=== PATIENT | male | born 1980 | race Caucasian/White ===

== ENCOUNTER 2018-09-24 12:59 | Day surgery (SDC) | payer MEDICAID ==
[~2018-09-24 12:59] MED LIST: ALPRAZolam TAB* 0.25 MG PO ONE; Famotidine IV* 10 MG/ML 2 ML (20 mg) IV ONE; Lactated Ringers 1000 ML Bag* 1,000 ML IV SCH
[2018-09-24] MEDS ORDERED: fentaNYL* 50 MCG/ML 2 ML VIAL (100 MCG VIAL) ONE ×2 (13:10)
[2018-09-24] MEDS ORDERED: Midazolam* 1 MG/ML 5 ML VIAL (5 MG) ONE ×2 (13:10)
[2018-09-24] MEDS: Buffered Lidocaine 1% SYRIN* 1 ML/SYRINGE INTRADERM ONE ×2 (13:26→14:49)
[2018-09-24] MEDS ORDERED: Clindamycin 900 MG/D5W BAG(*) 900 MG/50 ML BAG IVPB ONE ×2 (13:32)
[2018-09-24] MEDS ORDERED: Famotidine IV* 10 MG/ML 2 ML (20 mg) ONE ×2 (13:32)
[2018-09-24] MEDS ORDERED: Lidocaine 2.5%/Prilocain 2.5%* 5 GM TUBE ONE ×2 (13:34)
[2018-09-24] MEDS ORDERED: Bupivacaine 0.25% SDV PF* 10 ML VIAL INJ ONE ×2 (14:28)
[2018-09-24] MEDS ORDERED: Ketorolac INJ* 30 MG/ML 1 ML VIAL ONE ×2 (15:23)
[2018-09-24] MEDS ORDERED: Lidocaine 2% PF * 5 ML VIAL ONE ×2 (15:23)
[2018-09-24] MEDS ORDERED: Dexamethasone IV* 4 MG/ML 1 ML (4 MG) ONE ×2 (15:23)
[2018-09-24] MEDS ORDERED: Propofol* 10 MG/ML 20 ML BTL ONE ×4 (15:23→16:31)
[2018-09-24] MEDS ORDERED: Ondansetron INJ* 2 MG/ML VIAL ONE ×2 (15:23)
[2018-09-24] MEDS ORDERED: Acetaminophen TAB* 325 MG PO PRN (15:30)
[2018-09-24] MEDS ORDERED: oxyCODONE TAB* 5 MG TAB PO PRN (15:30)
[2018-09-24] MEDS ORDERED: DiMENhydriNATE IV* 50 MG/ML VIAL IV PUSH PRN (15:30)
[2018-09-24] MEDS ORDERED: HYDROmorphone INJ1* 1 MG/ML SYRINGE IV PRN (15:30)
[2018-09-24] MEDS ORDERED: Naloxone* 0.4 MG/ML 1 ML VIAL IV PRN (15:30)
[2018-09-24 17:00] VITALS: BP 142/97
--- NOTE | 2018-09-24 22:25 | OP ---
DATE OF OPERATION: 09/24/18 - [facility] DATE OF : 80 SURGEON: Gilberto Wills MD MATERIAL PROCESSOR: CLAUDIA Cantu. ANESTHESIOLOGIST: Dr. Guevara. ANESTHESIA: General. PRE-OP DIAGNOSIS: Left 3-week old extensor tendon terminal rupture with possible oblique retinacular ligament rupture and acute [place]-neck deformity. POST-OP DIAGNOSIS: Left 3-week old extensor tendon terminal rupture with possible oblique retinacular ligament rupture and acute [place]-neck deformity. OPERATIVE PROCEDURE: Repair of left middle finger terminal extensor tendon with Arthrex Alie Suture Anchors x2. INDICATIONS: Chato had the aforementioned injury. He had injured the index finger too, but that is doing fine. The middle finger has pretty significant [place]-neck deformity with the large mallet finger. We had talked about risks and benefits. He had wanted to proceed with surgery. ESTIMATED BLOOD LOSS: 2 mL. COMPLICATIONS: None. FINDINGS: See above and below. DESCRIPTION OF PROCEDURE: Chato was seen in the preoperative holding area. The correct side, site, and procedure were identified. We came back to the operating room. The area was prepped and draped in the usual fashion and a time -out was performed. The arm was exsanguinated with the Esmarch and the tourniquet was inflated to 250 mmHg. I raised a full-thickness flap off the terminal extensor tendon over the middle phalanx via a large dorsoradially based C-shaped flap. The extensor tendon was noted to be about a centimeter retracted; it was beginning to be healed but it was quite obvious where the [place] tendon had retracted too. There were some extensor tendon adhesions. These were all freed up. The healing tendon was adherent in one layer to the dorsal DIP joint capsule. This was all released and a full tenolysis was performed. I went ahead and then prepared the distal phalanx and placed two Arthrex Alie Suture Anchors in standard fashion. I trimmed the terminal extensor tendon and then the 3- 0 FiberWire suture was whipstitched up into the end of the tendon and then DIP joint was extended and each of the two sutures were tied up bringing the tendon back down in apposition to the distal phalanx. It was very tight and the DIP joint was sitting in about 10 degrees of hyperextension after the repair. There I could fully flex the DIP joint down and there was no gapping at the repair site. Again, full flexion of the PIP and DIP joint was possible. When I would let go off that the DIP joint would go back into 10 degrees of hyperextension. I had thought that maybe I would have to reconstruct the oblique retinacular ligament given the profound [place]-neck deformity; however, after I did the terminal extensor tendon repair, the PIP joint was actually seen in flexion instead of hyperextension and I did not think this was necessary. We therefore irrigated out the wounds. Skin was closed with 4-0 nylon suture. The wound was dressed with Xeroform, 4x4, 1-inch Michael, and then an AlumaFoam splint running the entire length of the finger was applied with DIP joint in extension. This was secured with Coban, brought down across the hand and wrist. Tourniquet was deflated and the flaps pinked up immediately. The tourniquet was deflated prior to dressing placement. I had performed a digital block with 0.25% Marcaine at the beginning of the case. He was taken to the recovery room in stable condition. [id number]/[facility] #: [id number] JEN
== END 2018-09-25 08:58 | disposition home or self-care (01) ==
LOC: OR 12:59
PROVIDERS: ATTEND Orthopaedic Surgery Hand Surgery
DX: S66.313A Strain of extensor muscle, fascia and tendon of left middle finger at wrist and hand level, initial encounter (principal); Z72.0 Tobacco use; G40.909 Epilepsy, unspecified, not intractable, without status epilepticus; F41.9 Anxiety disorder, unspecified; X58.XXXA Exposure to other specified factors, initial encounter; Y92.9 Unspecified place or not applicable
CPT/HCPCS: A9270-GY; C1713; J1100; J1885; J2250; J2405; J2704; J3010; J3490